=== PATIENT | female | born 1995 | race Caucasian/White ===

== ENCOUNTER 2016-12-02 18:08 | Emergency (ER) | payer OTHER ==
[2016-12-02 18:18] VITALS: TEMP 98.6
--- NOTE | 2016-12-02 18:20 | EDPHY ---
H & P Stated Complaint: dx strep wed/started unknown abx/ today feeling like cant take full breath/ Time Seen by Provider: 12/02/16 18:20 HPI/ROS: CHIEF COMPLAINT: Right-sided pleuritic chest pain HISTORY OF PRESENT ILLNESS: The patient presents the ED with a 1 day history of right-sided pleuritic chest pain. The patient reportedly was diagnosed with strep pharyngitis on once and has been on antibiotics since that time. The patient developed symptoms of right-sided chest pain and tenderness today. The patient denies prior history of the symptoms. She denies fall or trauma. She denies asymmetric calf pain or swelling. There is no family history of PE or DVT. The patient does not smoke. The patient has an IUD and uses no oral contraceptive medications. REVIEW OF SYSTEMS: A comprehensive 10 point review of systems is otherwise negative aside from elements mentioned in the history of present illness. Source: Patient Exam Limitations: No limitations - Personal History LMP (Females 10-55): IUD In Place Current Tetanus/Diphtheria Vaccine: Yes - Medical/Surgical History Hx Asthma: No Hx Chronic Respiratory Disease: No Hx Diabetes: No Hx Cardiac Disease: No Hx Renal Disease: No Hx Cirrhosis: No Hx Alcoholism: No Hx HIV/AIDS: No Hx Splenectomy or Spleen Trauma: No Other PMH: strep throat - Social History Smoking Status: Never smoked - Physical Exam Exam: General Appearance: Alert, no distress Eyes: Pupils equal and round no pallor or injection ENT, Mouth: Mucous membranes moist Respiratory: Mild tenderness to palpation lateral to the sternum on the right anterior chest wall, no crepitus, no subcutaneous emphysema Cardiovascular: Regular rate and rhythm Gastrointestinal: Abdomen is soft and nontender, no masses, bowel sounds normal Neurological: A&O, normal motor function, normal sensory exam, normal cranial nerves Skin: Warm and dry, no rashes Musculoskeletal: Neck is supple nontender Extremities: symmetrical, full range of motion Constitutional: Initial Vital Signs Temperature (C) 37 C 12/02/16 18:14 Heart Rate 78 12/02/16 18:14 Respiratory Rate 18 12/02/16 18:14 Blood Pressure 128/78 H 12/02/16 18:14 O2 Sat (%) 98 12/02/16 18:14 O2 Delivery Mode Room Air Allergies/Adverse Reactions: Penicillins Allergy (Verified 12/02/16 18:14) Home Medications: Medication Instructions Recorded Unknown Abx 12/02/16 Medical Decision Making - Diagnostics EKG Interpretation: EKG: Complete interpretation has been separately recorded in the [email or web address] archive. Summary impression: Sinus rhythm, rate 76 Imaging Results: Chest x-ray PA lateral: Images reviewed by myself, negative for pneumothorax, hemothorax, rib fracture or pneumomediastinum. Impression normal chest x-ray ED Course/Re-evaluation: The patient presents to the ED with a 2 day history of right-sided pleuritic chest pain which is reproducible. The patient has no risk factors for PE or DVT. The patient is noted to be hemodynamically stable. The patient's D-dimer is negative which I feel adequately excludes pulmonary embolism. The patient's chest x-ray demonstrates no evidence of a rib fracture or pneumothorax. Her EKG and laboratory testing is in within normal limits. The patient did receive 30 mg of IV Toradol. The patient had serial examinations in the ED by myself. She is feeling better after receiving Toradol. At this point time I fell etiology of her chest pain is costochondritis. I do feel that she can be safely discharged home with instructions to return to the ED for markedly worsening symptoms or other concerns. The patient does have a history of strep pharyngitis but currently has no evidence of a peritonsillar abscess, retropharyngeal abscess or meningitis clinically. Differential Diagnosis: Differential diagnosis considered includes pneumonia, pneumothorax, pulmonary embolism, costochondritis - Data Points Laboratory Results: Laboratory Results 12/02/16 18:43 12/02/16 18:43 12/02/16 12/02/16 12/02/16 18:43 18:43 18:43 WBC RBC Hgb Hct MCV MCH MCHC RDW Plt Count MPV Neut % (Auto) Lymph % (Auto) [place] % (Auto) Eos % (Auto) Baso % (Auto) Nucleat RBC Rel Count Absolute Neuts (auto) Absolute Lymphs (auto) Absolute Monos (auto) Absolute Eos (auto) Absolute Basos (auto) Absolute Nucleated RBC Immature Gran % Immature Gran # D-Dimer < 0.27 ug/mLFEU ug/mLFEU (0.00-0.50) Sodium 141 mEq/L mEq/L (134-144) Potassium 3.4 mEq/L L mEq/L (3.5-5.2) Chloride 103 mEq/L mEq/L (97-110) Carbon Dioxide 22 mEq/l mEq/l (22-31) Anion Gap 16 mEq/L mEq/L (8-16) BUN 15 mg/dL mg/dL (7-23) Creatinine 0.7 mg/dL mg/dL (0.6-1.0) Estimated GFR > 60 Glucose 104 mg/dL H mg/dL (70-100) Calcium 9.3 mg/dL mg/dL (8.5-10.4) Beta HCG, Qual NEGATIVE 12/02/16 18:43 WBC 6.12 10^3/uL 10^3/uL (3.80-9.50) RBC 4.96 10^6/uL 10^6/uL (4.18-5.33) Hgb 14.5 g/dL g/dL (12.6-16.3) Hct 42.9 % % (38.0-47.0) MCV 86.5 fL fL (81.5-99.8) MCH 29.2 pg pg (27.9-34.1) MCHC 33.8 g/dL g/dL (32.4-36.7) RDW 12.4 % % (11.5-15.2) Plt Count 245 10^3/uL 10^3/uL (150-400) MPV 9.8 fL fL (8.7-11.7) Neut % (Auto) 53.2 % % (39.3-74.2) Lymph % (Auto) 33.8 % % (15.0-45.0) [place] % (Auto) 10.3 % % (4.5-13.0) Eos % (Auto) 2.0 % % (0.6-7.6) Baso % (Auto) 0.5 % % (0.3-1.7) Nucleat RBC Rel Count 0.0 % % (0.0-0.2) Absolute Neuts (auto) 3.26 10^3/uL 10^3/uL (1.70-6.50) Absolute Lymphs (auto) 2.07 10^3/uL 10^3/uL (1.00-3.00) Absolute Monos (auto) 0.63 10^3/uL 10^3/uL (0.30-0.80) Absolute Eos (auto) 0.12 10^3/uL 10^3/uL (0.03-0.40) Absolute Basos (auto) 0.03 10^3/uL 10^3/uL (0.02-0.10) Absolute Nucleated RBC 0.00 10^3/uL 10^3/uL (0-0.01) Immature Gran % 0.2 % % (0.0-1.1) Immature Gran # 0.01 10^3/uL 10^3/uL (0.00-0.10) D-Dimer Sodium Potassium Chloride Carbon Dioxide Anion Gap BUN Creatinine Estimated GFR Glucose Calcium Beta HCG, Qual Medications Given: Discontinued Medications Ketorolac Tromethamine (Toradol) 30 mg IVP EDNOW ONE Stop: 12/02/16 19:50 Last Admin: 12/02/16 20:01 Dose: 30 mg Departure - Departure Disposition: Home, Routine, Self-Care Condition: Good Instructions: Costochondritis (ED) Additional Instructions: 1. Take Ibuprofen or Motrin 600 mg by mouth three times a day for likely inflammation of the cartilage adjacent to your sternum. 2. Please return to the ED for markedly worsening symptoms or other concerns. Your chest x-ray demonstrates no evidence of a collapsed lung. Your blood testing demonstrates no evidence of a cardiac problem or blood clot. 3. Please follow up with your primary care provider as needed.
--- NOTE | 2016-12-02 18:33 | CPEKG ---
Heart Rate: 76 RR Interval: 789 P-R Interval: 152 QRSD Interval: 92 QT Interval: 384 QTC Interval: 432 P [place]: 50 QRS [place]: 64 T Wave [place]: 26 EKG Severity - NORMAL ECG - EKG Impression: SINUS RHYTHM Electronically Signed By: Dedrick Arreaga 02-Dec-2016 18:41:44
[2016-12-02 18:53] LABS: % IMMATURE GRANULYOCYTES 0.2 % (0.0-1.1); ABSOLUTE IMMATURE GRANULOCYTES 0.01 10^3/uL (0.00-0.10); ADD DIFF? NO; ADD MORPH? NO; ADD SCAN? NO; ATYPICAL LYMPHOCYTE FLAG 70 (0-99); FRAGMENT RBC FLAG 0 (0-99); HEMATOCRIT 42.9 % (38.0-47.0); HEMOGLOBIN 14.5 g/dL (12.6-16.3); LEFT SHIFT FLG 0 (0-99); LIPEMIA HEMOLYSIS FLAG 90 (0-99); MEAN CELL HEMOGLOBIN 29.2 pg (27.9-34.1); MEAN CELL HEMOGLOBIN CONCENTR. 33.8 g/dL (32.4-36.7); MEAN CELL VOLUME 86.5 fL (81.5-99.8); MEAN PLATELET VOLUME 9.8 fL (8.7-11.7); PLATELET CLUMPS FLAG 0 (0-99); PLATELET COUNT 245 10^3/uL (150-400); RED BLOOD CELL COUNT 4.96 10^6/uL (4.18-5.33); RED CELL DISTRIBUTION WIDTH 12.4 % (11.5-15.2)
[2016-12-02 19:04] LABS: ANION GAP 16 mEq/L (8-16); CALCIUM 9.3 mg/dL (8.5-10.4); CARBON DIOXIDE 22 mEq/l (22-31); CHLORIDE 103 mEq/L (97-110); CREATININE 0.7 mg/dL (0.6-1.0); GLOMERULAR FILTRATION RATE > 60; GLUCOSE 104 mg/dL (70-100); POTASSIUM 3.4 mEq/L (3.5-5.2); SODIUM 141 mEq/L (134-144)
[2016-12-02] MEDS ORDERED: KETOROLAC 30 MG/1 ML SDV IVP ONE (19:49)
[2016-12-02 20:28] VITALS: BP 88/60; PULSE 58; RESP 14; O2SAT 97
== END 2016-12-02 20:27 | disposition home or self-care (01) ==
DX: M94.0 Chondrocostal junction syndrome [Tietze] (principal)
CPT/HCPCS: 96374; J1885